=== PATIENT | female | born 1945 | race Caucasian/White ===

== ENCOUNTER → 2017-01-13 | Outpatient (CLI) | payer MEDICARE ==
[~2017-01-13] MED LIST: ACET650T10 PR; ASPI81CH CHEW; ASPI81TA82 PO; GLUCTAB6; POTA99TA12 PO; ROSU20 PO; ROSU40 PO; SERT-132 PO; TYLE325T PO; VITACAP7 PO; VITATAB11
--- NOTE | 2017-01-13 14:04 | RADRPT ---
EXAM DATE/TIME: 01/13/2017 13:53 [facility] COMPARISON: No previous studies available for comparison. INDICATIONS : Evaluate for pneumonia,pneumothorax or communicable disease. MEDICAL HISTORY : Cardiovascular disease. SURGICAL HISTORY : CABG. ENCOUNTER: Initial ACUITY: 1 day PAIN SCORE: 0/10 LOCATION: upper chest FINDINGS: PA and lateral views of the chest demonstrate the lungs to be symmetrically aerated without evidence of mass, infiltrate or effusion. The cardiomediastinal contours are unremarkable. There is evidence of previous cardiothoracic surgery. Osseous structures are intact. CONCLUSION: No acute disease. Paulo Blood MD on January 13, 2017 at 14:02 Board Certified Radiologist. This report was verified electronically.
[2017-01-13 14:12] LABS: AUTOMATED NEUTROPHIL # 4.5 TH/MM3 (1.8-7.7); BASOPHIL % 0.7 % (0.0-2.0); EOSINOPHIL # 0.1 TH/MM3 (0-0.4); HEMATOCRIT 40.4 % (35.0-46.0); HEMO FLAGS DIFF FINAL; LYMPH % 27.7 % (9.0-44.0); MEAN CELL VOLUME 98.8 FL (80.0-100.0); MEAN CORPUSCULAR HEMOGLOBIN 32.7 PG (27.0-34.0); MEAN CORPUSCULAR HGB CONC 33.1 % (32.0-36.0); MONO % 7.6 % (0.0-8.0); PLATELET COUNT 250 TH/MM3 (150-450); RED BLOOD COUNT 4.09 MIL/MM3 (4.00-5.30); RED CELL DISTRIBUTION WIDTH 14.2 % (11.6-17.2); WHITE BLOOD COUNT 7.2 TH/MM3 (4.0-11.0)
[2017-01-13 14:14] LABS: BLOOD, URINE NEG (NEG); COMMENT (UR) CULT NOT INDICATED; CULTURE IF INDICATED CULT NOT INDICATED; GLUCOSE,URINE NEG (NEG); KETONE, URINE NEG (NEG); NITRITE,URINE NEG (NEG); PH, URINE 5.5 (5.0-8.5); URINE COLOR YELLOW (YELLW/STRAW)
[2017-01-13 14:20] LABS: APTT (PATIENT) 25.7 SEC (24.3-30.1); INTERNATIONAL NORMALIZED RATIO 0.9 RATIO; PROTHROMBIN TIME - PATIENT 10.2 SEC (9.8-11.6)
[2017-01-13 14:43] LABS: ALT (GPT) 22 U/L (10-53); ANION GAP 8 MEQ/L (5-15); AST (GOT) 17 U/L (15-37); BICARBONATE 25.8 MEQ/L (21.0-32.0); BLOOD UREA NITROGEN 20 MG/DL (7-18); CHLORIDE 103 MEQ/L (98-107); GLOMERULAR FILTRATION RATE 96 ML/MIN (>89); GLUCOSE,FASTING 82 MG/DL (74-99); POTASSIUM 4.2 MEQ/L (3.5-5.1); SODIUM (NA) 137 MEQ/L (136-145)
[2017-01-13 14:46] LABS: ALKALINE PHOSPHATASE 57 U/L (45-117); TOTAL BILIRUBIN ADULT 0.8 MG/DL (0.2-1.0)
--- NOTE | 2017-01-16 18:11 | EKG ---
Date Performed: 01/13/2017 Time Performed: 13:19:10 PTAGE: 71 years EKG: Sinus rhythm RIGHT BUNDLE BRANCH BLOCK ABNORMAL ECG NO PREVIOUS TRACING DOCTOR: Reji Wells Interpretating Date/Time 01/16/2017 18:09:37
== END ==
LOC: CPRE 12:29
PROVIDERS: ATTEND Neurological Surgery
DX: Z01.810 Encounter for preprocedural cardiovascular examination (principal); Z01.812 Encounter for preprocedural laboratory examination; Z01.818 Encounter for other preprocedural examination; M51.36 Other intervertebral disc degeneration, lumbar region; M12.88 Other specific arthropathies, not elsewhere classified, other specified site; M43.16 Spondylolisthesis, lumbar region; R94.31 Abnormal electrocardiogram [ECG] [EKG]; Z79.01 Long term (current) use of anticoagulants
CPT/HCPCS: 36415; 71020; 80053; 81001; 85025; 85610; 85730; 93005

== ENCOUNTER 2017-01-24 05:41 | Inpatient (IN) | payer MEDICARE ==
--- NOTE | 2017-01-21 17:03 | MH ---
cc: ISABEL THORNTON M.D. DATE OF ADMISSION: 01/24/2017 ADMITTING DIAGNOSIS: Lumbar degenerative disk disease. HISTORY OF PRESENT ILLNESS: This is a 71-year-old female who is presented to our office on 08/07/2015 and also on 01/06/2017 for evaluation of hip, groin and right lateral leg pain. She has a history of bilateral hip pain for five years but really bad over the last two years. She was seeing Dr. Davila from orthopedics for her hip pain and x-rays were obtained and he felt that they looked okay and though that it was her lumbar spine that was the problem and he obtained an MRI of the lumbar spine. She was referred to our office for further evaluation. She states the pain in the low back whenever she is lifting something. She also has pain located in bilateral hips and in the groin, right more than left. The pain radiates into the lateral aspect of the right leg with associated paresthesias to the ankle, and at times the dorsal aspect of the left foot, although also relates osteoarthritic pain in the left foot. She has a difficult time getting up after she has been sitting for a while secondary to the groin pain. She has limited walking secondary to her pain and states that after her coronary artery bypass graft she was walking four miles a day and at her most recent appointment, she states that she cannot even walk a mile. She has been to her primary care physician who gave her a cortisone injection in the buttocks, which did not help. She has been to physical therapy, which did not help. She also states that she has had acupuncture, which helped her temporarily. She states at night when she goes to bed she has to lay on her back with a pillow under her legs and she cannot sleep on her sides any more secondary to her pain. She gets hot and cold sensations in her feet bilaterally. She has generalized weakness in the lower extremities but denies any falls. She denies any bowel or bladder incontinence. PAST MEDICAL HISTORY: Significant for: 1. Hyperlipidemia. 2. Coronary artery disease status post bypass graft in 2005. 3. Bunionectomy in 1989 and 1995. 4. Hysterectomy in 1975. MEDICATIONS: 1. Crestor 40 milligrams p.o. daily. 2. Sertraline 50 milligrams p.o. daily. 3. Aspirin 81 milligrams p.o. daily. 4. Glucosamine and chondroitin. 5. Potassium supplementation. 6. Vitamin B complex. ALLERGIES: SHE HAS NO KNOWN DRUG ALLERGIES. FAMILY HISTORY: Her mother is at 37 years old and had cancer. Her father is at 76 year old and he also had cancer. She has two sisters and a brother, one sister is 77 and another is 62 and another is 70, all are alive and well. SOCIAL HISTORY: She is . She is retired. She has three children. She quit smoking in 1989. She drinks zero to two drinks of alcohol daily. REVIEW OF SYSTEMS CONSTITUTIONAL: She denies any fever or chills. EARS, NOSE AND THROAT: No pharyngitis, exudates or bloody drainage from her nose. CARDIOVASCULAR: She denies any chest pain or palpitations. RESPIRATORY: No cough or shortness of breath. GENITOURINARY: No dysuria or hematuria. MUSCULOSKELETAL: Positive for low back pain and generalized weakness in the lower extremities. SKIN: No rashes or pruritus. NEUROLOGIC: No difficulty with speech or memory. GASTROINTESTINAL: No nausea or vomiting or abdominal pain. PSYCHIATRIC: No anxiety or depression symptoms. ENDOCRINE: No polyuria or polydipsia. HEMATOLOGIC: Positive bruising tendencies but no bleeding tendencies. PHYSICAL EXAMINATION HEAD: Normocephalic, atraumatic. NECK: Supple. No carotid bruits heard on auscultation. LUNGS: Clear to auscultation bilaterally. HEART: Regular rate and rhythm. Normal S1-S2. ABDOMEN: Soft, nontender. Positive bowel sounds. SKIN: Reveals no cyanosis or erythema. MUSCULOSKELETAL: She has 5/5 strength in the upper and lower extremities. She ambulates without any assistive device. NEUROLOGIC: She is awake, alert, oriented. Cranial nerves II-XII appear grossly intact. Speech is fluent. Comprehension is good. Sensation is hypersensitive in the right lateral foot otherwise intact in the extremities. Patellar reflexes are 2+. Achilles reflexes are absent bilaterally. DATA REVIEW: MRI of the lumbar spine from December 22, 2016 reveals moderate L4-L5 degenerative disk disease with a grade 1 spondylolisthesis and moderate to severe spinal stenosis with facet arthropathy. She also has mild L5-S1 disk degeneration. PLAN: We have discussed treatment options, which include an L4-L5 decompressive laminectomy versus a L4-L5 transforaminal decompression with interbody fusion to address the stenosis as well as the associated degenerative disk disease and spondylolisthesis. The procedure as well as the risks, benefits, alternatives and recovery time were explained in great detail with the patient. We have discussed the procedure in the office using spine models and all her questions were answered to her satisfaction. We have discussed the risks involved with surgery to include but not be limited to bleeding, infection, muscle weakness, voice hoarseness, difficulty swallowing, heart attack, stroke, blood clots, non-fusion, scar tissue formation among others. We have obtained cardiac clearance from Dr. Mitchell's office who placed her at an intermediate risk. She was instructed to hold her aspirin seven days prior to her surgical intervention. The patient states that she understands the procedure as well as the risks involved and she is requesting that proceed and she was therefore scheduled accordingly. Dictated by Dieter Hughes PA-C MD EZEKIEL Madrigal/YASMIN /4:31 PM /4:43 PM
[~2017-01-24] VITALS: Ht 162.6 cm; Wt 83.2 kg
[~2017-01-24 05:41] MED LIST changes: -ACET650T10 PR; -ASPI81TA82 PO; -GLUCTAB6; -POTA99TA12 PO; -ROSU40 PO; -SERT-132 PO; -VITATAB11
[2017-01-24] MEDS ORDERED: POVIDONE IODINE 5% (ANTISEPSIS KIT) 4 APPLICATIONS EACH NARE PRN ×2 (06:15)
[2017-01-24] MEDS ORDERED: SODIUM CHLOR 0.9% 1000 ML INJ 1,000 ML IV SCH ×2 (06:15)
[2017-01-24] MEDS ORDERED: LACTATED RINGER'S 1000 ML IV PRN ×2 (06:15)
[2017-01-24] MEDS ORDERED: SODIUM CHLORID 0.9% 500 ML IV PRN ×2 (06:15)
[2017-01-24] MEDS ORDERED: INSULIN HUMAN REGULAR 1,000 UNITS/10 ML VIAL SQ PRN ×2 (06:15)
[2017-01-24] MEDS ORDERED: CHLORHEXIDINE GLUCONATE 2 % 1 PACK (2 CLOTHS) TOPICAL PRN ×2 (06:15)
[2017-01-24] MEDS ORDERED: VANCOMYCIN HCL 1000 MG ON-CALL/NS 250 ML IV SCH ×4 (06:15)
[2017-01-24] MEDS ORDERED: METOPROLOL TARTRATE 25 MG TAB PO PRN ×2 (06:15)
[2017-01-24] MEDS ORDERED: HYDROmorphone HCL PF 2 MG/ML VIAL ONE ×2 (06:45)
[2017-01-24] MEDS ORDERED: DEXAMETHASONE SOD PHOS 4 MG/ML VIAL ONE ×2 (06:47)
[2017-01-24] MEDS ORDERED: ACETAMINOPHEN 1000 MG/100 ML 100 ML IV ONE ×2 (06:47)
[2017-01-24] MEDS ORDERED: FAMOTIDINE 20 MG/2 ML VIAL ONE ×2 (06:47)
[2017-01-24] MEDS ORDERED: VANCOMYCIN HCL 1000 MG VIAL ONE ×4 (06:52→10:56)
[2017-01-24] MEDS ORDERED: BUPIVACAINE/EPINEPHRINE 0.5% PF 10 ML VIAL ONE ×2 (06:52)
[2017-01-24] MEDS ORDERED: SERT25TA83 PO ×2 (06:52)
[2017-01-24] MEDS ORDERED: THROMBIN (TOPICAL) 5,000 UNIT VIAL ONE ×2 (06:52)
[2017-01-24] MEDS ORDERED: GELFOAM SIZE 100 ONE ×2 (06:53)
[2017-01-24] MEDS ORDERED: DO NOT ADM ANY ANTICOAGULANT DRUGS PRN ×2 (11:28)
--- NOTE | 2017-01-24 11:40 | RADRPT ---
EXAM DATE/TIME: 01/24/2017 08:32 [facility] COMPARISON: No previous studies available for comparison. INDICATIONS : Fusion L4,L5 with screws and joseph. MEDICAL HISTORY : Cardiovascular disease. SURGICAL HISTORY : CABG. ENCOUNTER: Initial ACUITY: 1 day PAIN SCORE: Non-responsive. LOCATION: Lumbar spine. FINDINGS: 2 views recorded digitally in the operating room using C-arm during placement of the lateral transped icular screws and an interspace device. CONCLUSION: Intraoperative images. Allen Mitchell MD on January 24, 2017 at 11:38 Board Certified Radiologist. This report was verified electronically.
[2017-01-24] MEDS: NS + KCL 20 MEQ INJ 1,000 ML IV SCH ×4 (11:41→21:41)
[2017-01-24] MEDS ORDERED: CYCLOBENZAPRINE HCL 10 MG TAB PO PRN ×2 (11:45)
[2017-01-24] MEDS ORDERED: MENTHOL LOZENGE BUCCAL PRN ×2 (11:45)
[2017-01-24] MEDS ORDERED: CALCIUM GLUCONATE INJ 1 GM in SODIUM CHLORIDE 0.9% INJ 100 ML IV PRN ×4 (11:45)
[2017-01-24] MEDS ORDERED: NALOXONE HCL 0.4 MG/ML AMP IV PUSH PRN ×2 (11:45)
[2017-01-24] MEDS ORDERED: diphenhydrAMINE HCL 50 MG/ML VIAL IV PUSH PRN ×2 (11:45)
[2017-01-24] MEDS ORDERED: POTASSIUM CHLOR 20 MEQ PREMIX 100 ML IV PRN ×2 (11:45)
[2017-01-24] MEDS ORDERED: MAGNESIUM SULFATE INJ 2 GM in SODIUM CHLORIDE 0.9% INJ 100 ML IV PRN ×4 (11:45)
[2017-01-24] MEDS ORDERED: ACETAMINOPHEN 325 MG TAB PO PRN ×2 (11:45)
[2017-01-24] MEDS ORDERED: cloNIDine HCL 0.1 MG TAB PO PRN ×2 (11:45)
[2017-01-24] MEDS ORDERED: ALUMINUM/MAGNESIUM/SIMETH 30 ML CUP PO PRN ×2 (11:45)
[2017-01-24] MEDS ORDERED: ACETAMINOPHEN/HYDROcodone 325 MG/10 MG TAB PO PRN ×2 (11:45)
[2017-01-24] MEDS ORDERED: ONDANSETRON HCL 4 MG/2 ML VIAL IV PUSH PRN ×2 (11:45)
[2017-01-24] MEDS ORDERED: PROMETHAZINE INJ 25 MG/ML VIAL IM PRN ×2 (11:45)
[2017-01-24] MEDS ORDERED: SODIUM CHLORIDE 0.9% FLUSH 10 ML FLUSH IV FLUSH PRN ×2 (11:45)
--- NOTE | 2017-01-24 11:46 | PD.OP ---
cc: Froylan Brewer MD Operative Report Date of Surgery: Jan 24, 2017 Preoperative Diagnosis: Intractable low back pain with neurogenic claudication and radiculopathy; L4-5 severe spinal stenosis from facet arthropathy and associated degenerative disc disease with a grade 1 spondylolisthesis Postoperative Diagnosis: Same Procedure: Lumbar L4-5 transforaminal interbody fusion; L4-5 decompressive laminectomy; L4- 5 pedicle screw fixation; L4-5 interbody cage placement; microsurgical technique Anesthesia: Gen. endotracheal by Miguel Caballero Surgeon: Jordin Grover M.D. Cardiac Exercise Physiologist(s): Filomena Dickinson Operation and Findings: Following initiation of general endotracheal anesthesia, the patient had a Frankel catheter placed along with sequential compression devices. A gram of vancomycin was administered intravenously and she was turned in a prone position on a Norm frame, on a Jonathan table, and all pressure points adequately padded. The lumbosacral region was then prepped with Chloraprep and sterilely draped with Ioban along the usual sterile draping. A right paraspinal skin incision was then made extending from the L4-L5 level after infiltrating the skin with 0.5% Marcaine with epinephrine solution extending down through the fascia. The muscle fibers were split using avascular fatty plane and detached from the underlying facets, transverse process and lateral portion of lamina on the right side and a self-retaining retractor used for exposure. Intraoperative fluoroscopy was also used for level of confirmation along with microscope magnification for further dissection. There was significant facet and ligamentum flavum hypertrophy noted at the L4-5 levels. There was a pars defect along with spondylolisthesis evident at this level. Right L4-5 facet was resected with a drill bit along with the lamina and there was severe foraminal and lateral recess stenosis from hypertrophied ligamentum flavum and facet which were decompressed bilaterally through the unilateral approach. There was disc degeneration along with disc protrusion also leading to the foraminal stenosis. Epidural hemostasis was achieved with bipolar cautery and Gelfoam with thrombin. Subsequently entered into the disc space at the L4-5 level with a #15 blade and courtney were used for discectomy. I then placed PEEK cage packed with local autograft bone and more local autograft bone was packed adjacent to the cage in interspace for added interbody fusion. With placement of the cage, I was able to distract the interspace and opened up the foramen further bilaterally. Subsequently in order to facilitate the fusion and provide stabilization, pedicle screw fixation was undertaken using Avalon spine screws on entry point at the right L4-5 levels at the junction of the transverse process and facet. Subsequently using AP and lateral fluoroscopy tap and screw placement. The screws were then connected with a joseph and locked in place with caps. The construct appeared very secure at this point. The area was then copiously irrigated with Vancomycin solution and powder. The retractors were removed and the bipolar cautery used for hemostasis. The muscle fascia was then approximated using 2-0 Vicryl interrupted stitches and then 3-0 Vicryl subcuticular stitches also placed in interrupted fashion. The final skin closure was completed with Mastisol and Steri-Strips. A sterile dressing was then applied. The patient then turned in supine position, extubated and taken to recovery room. There were no intraoperative complications. All sponge and needle counts were correct at the end of procedure. Estimated blood loss about 100 ml. Jordin Grover MD Jan 24, 2017 11:46
[2017-01-24] MEDS ORDERED: ERYTHROMYCIN 0.5% OPTH OINT 1 GM TUBO ONE ×2 (12:44)
[2017-01-24 13:06] LABS: HEMATOCRIT 38.1 % (35.0-46.0); HEMOGLOBIN 12.7 GM/DL (11.6-15.3); MEAN CELL VOLUME 98.9 FL (80.0-100.0); MEAN CORPUSCULAR HGB CONC 33.4 % (32.0-36.0); MEAN PLATELET VOLUME 9.3 FL (7.0-11.0); PLATELET COUNT 217 TH/MM3 (150-450); RED BLOOD COUNT 3.85 MIL/MM3 (4.00-5.30); RED CELL DISTRIBUTION WIDTH 14.5 % (11.6-17.2); WHITE BLOOD COUNT 6.6 TH/MM3 (4.0-11.0)
[2017-01-24 13:27] LABS: BICARBONATE 26.5 MEQ/L (21.0-32.0); CALCIUM 8.7 MG/DL (8.5-10.1); CREATININE 0.69 MG/DL (0.50-1.00)
[2017-01-24] MEDS: PCA - TOTAL MG MORPHINE DELIVERED PER SHIFT SCH ×2 (14:00)
[2017-01-24] MEDS ORDERED: PILL SPLITTER OTHER PRN ×2 (14:00)
[2017-01-24] MEDS: MORPHINE SULFATE 30 MG/30 ML PCA IV SCH ×2 (14:09)
[2017-01-24] MEDS ORDERED: ERYTHROMYCIN 0.5% OPTH OINT 3.5 GM TUBO LEFT EYE ONE ×2 (15:00)
[2017-01-24] MEDS ORDERED: TETRACAINE 0.5% OPTH SOLN 4 ML BTL LEFT EYE ONE ×2 (15:00)
[2017-01-24 15:52] VITALS: BP 114/63; PULSE 75; RESP 18; TEMP 98.4; O2SAT 98
[2017-01-24] MEDS ORDERED: ZOLPIDEM TARTRATE 5 MG TAB PO PRN ×2 (21:00)
[2017-01-24] MEDS: DOCUSATE SODIUM 100 MG CAP PO SCH ×2 (21:00)
[2017-01-24] MEDS: SODIUM CHLORIDE 0.9% FLUSH 10 ML FLUSH IV FLUSH SCH ×2 (21:00)
[2017-01-25] VITALS (7 sets, daily range): BP systolic 90–112; BP diastolic 50–58; PULSE 69–78; RESP 16–20; TEMP 97.8–98.6; O2SAT 96–100
[2017-01-25] MEDS: PCA - TOTAL MG MORPHINE DELIVERED PER SHIFT SCH ×8 (06:28→22:00)
[2017-01-25] MEDS: NS + KCL 20 MEQ INJ 1,000 ML IV SCH ×4 (07:41→17:41)
[2017-01-25] MEDS ORDERED: NON-FORMULARY DRUG (B-Complex Vitamins (B Complex) 1 CAP) PO SCH ×2 (09:00)
[2017-01-25] MEDS: POLYETHYLENE GLYCOL 17 GM PKG PO SCH ×2 (09:00)
[2017-01-25] MEDS: ATORVASTATIN 40 MG TAB PO SCH ×2 (09:00)
[2017-01-25] MEDS: SODIUM CHLORIDE 0.9% FLUSH 10 ML FLUSH IV FLUSH SCH ×4 (09:00→21:00)
--- NOTE | 2017-01-25 09:45 | HHI.NSPN ---
(Dieter Hughes) History Chief Complaint: Incisional discomfort. (Dieter Hughes) Interval History 01/25/17: Pt complains of incisional pain. No radiculopathy or paresthesias in LEs. She is on SPORTS EDITOR controlling pain when at rest, incisional pain with movement. (Dieter Hughes) Review of Systems General: Negative for: fever, chills, insomnia Respiratory: Negative for: shortness of breath, cough, sputum Cardiovascular: Negative for: chest pain Gastrointestinal: Negative for: nausea, vomitting, diarrhea, constipation ( Dieter Hughes) Exam Results Vital Signs Date Time Temp Pulse Resp B/P (MAP) Pulse Ox O2 Delivery O2 Flow Rate FiO2 01/25/17 04:00 98.2 74 20 101/51 (68) 97 01/24/17 14:00 Nasal Cannula 2 Intake and Output 01/25/17 01/25/17 01/26/17 08:00 16:00 00:00 Output Total 325 ml Balance -325 ml (Dieter Hughes) Physical Examination Resp: CTA bilaterally Heart: NSR no murmurs Abd: Soft positive bs Skin: Pt log rolled. Incision clean and dry. No signs of infection. Bandage left in place per orders. Muscle: Moves LEs with good strength. Neuro: Pt awake and alert. Follows commands well. Speech clear and appropriate. Sensation in LEs intact. (Dieter Hughes) Lab, Micro, Other Results Last Impressions Lumbar Spine X-Ray 01/24/17 0000 Signed Impressions: Service Date/Time: Tuesday, January 24, 2017 08:32 - CONCLUSION: Intraoperative images. Allen Mitchell MD Laboratory Tests Test 01/24/17 12:51 White Blood Count 6.6 TH/MM3 Red Blood Count 3.85 MIL/MM3 Hemoglobin 12.7 GM/DL Hematocrit 38.1 % Mean Corpuscular Volume 98.9 FL Mean Corpuscular Hemoglobin 33.0 PG Mean Corpuscular Hemoglobin Concent 33.4 % Red Cell Distribution Width 14.5 % Platelet Count 217 TH/MM3 Mean Platelet Volume 9.3 FL Blood Urea Nitrogen 12 MG/DL Creatinine 0.69 MG/DL Random Glucose 126 MG/DL Calcium Level 8.7 MG/DL Sodium Level 140 MEQ/L Potassium Level 3.9 MEQ/L Chloride Level 106 MEQ/L Carbon Dioxide Level 26.5 MEQ/L Anion Gap 8 MEQ/L Estimat Glomerular Filtration Rate 83 ML/MIN (Dieter Hughes) Medical Decision Making Impression and Plan A: 71 y/o FM s/p Lumbar L4-5 transforaminal interbody fusion; L4-5 decompressive laminectomy; L4-5 pedicle screw fixation; L4-5 interbody cage placement; microsurgical technique on 01/24/17. P: Continue to monitor Continue with current care Continue with rehab efforts. (Dieter Hughes) Attending Statement The exam, history, and the medical decision-making described in the above note were completed with the assistance of the mid-level provider. I reviewed and agree with the findings presented. I attest that I had a [id number] encounter with the patient on the same day, and personally performed and documented my assessment and findings in the medical record. Relates surgical incisional pain control with SPORTS EDITOR and ambulated with physical therapy short distance. Denies any lower extremity symptoms. Continue with pain management and physical therapy. (Jordin Grover MD) Dieter Hughes Jan 25, 2017 09:45 Jordin Grover MD Jan 25, 2017 18:24
--- NOTE | 2017-01-25 09:45 | HHI.NSPN ---
(Dieter Hughes) History Chief Complaint: Incisional discomfort. (Dieter Hughes) Interval History 01/25/17: Pt complains of incisional pain. No radiculopathy or paresthesias in LEs. She is on GROUT PUMP OPERATOR controlling pain when at rest, incisional pain with movement. (Dieter Hughes) Review of Systems General: Negative for: fever, chills, insomnia Respiratory: Negative for: shortness of breath, cough, sputum Cardiovascular: Negative for: chest pain Gastrointestinal: Negative for: nausea, vomitting, diarrhea, constipation ( Dieter Hughes) Exam Results Vital Signs Date Time Temp Pulse Resp B/P (MAP) Pulse Ox O2 Delivery O2 Flow Rate FiO2 01/25/17 04:00 98.2 74 20 101/51 (68) 97 01/24/17 14:00 Nasal Cannula 2 Intake and Output 01/25/17 01/25/17 01/26/17 08:00 16:00 00:00 Output Total 325 ml Balance -325 ml (Dieter Hughes) Physical Examination Resp: CTA bilaterally Heart: NSR no murmurs Abd: Soft positive bs Skin: Pt log rolled. Incision clean and dry. No signs of infection. Bandage left in place per orders. Muscle: Moves LEs with good strength. Neuro: Pt awake and alert. Follows commands well. Speech clear and appropriate. Sensation in LEs intact. (Dieter Hughes) Lab, Micro, Other Results Last Impressions Lumbar Spine X-Ray 01/24/17 0000 Signed Impressions: Service Date/Time: Tuesday, January 24, 2017 08:32 - CONCLUSION: Intraoperative images. Allen Mitchell MD Laboratory Tests Test 01/24/17 12:51 White Blood Count 6.6 TH/MM3 Red Blood Count 3.85 MIL/MM3 Hemoglobin 12.7 GM/DL Hematocrit 38.1 % Mean Corpuscular Volume 98.9 FL Mean Corpuscular Hemoglobin 33.0 PG Mean Corpuscular Hemoglobin Concent 33.4 % Red Cell Distribution Width 14.5 % Platelet Count 217 TH/MM3 Mean Platelet Volume 9.3 FL Blood Urea Nitrogen 12 MG/DL Creatinine 0.69 MG/DL Random Glucose 126 MG/DL Calcium Level 8.7 MG/DL Sodium Level 140 MEQ/L Potassium Level 3.9 MEQ/L Chloride Level 106 MEQ/L Carbon Dioxide Level 26.5 MEQ/L Anion Gap 8 MEQ/L Estimat Glomerular Filtration Rate 83 ML/MIN (Dieter Hughes) Medical Decision Making Impression and Plan A: 71 y/o FM s/p Lumbar L4-5 transforaminal interbody fusion; L4-5 decompressive laminectomy; L4-5 pedicle screw fixation; L4-5 interbody cage placement; microsurgical technique on 01/24/17. P: Continue to monitor Continue with current care Continue with rehab efforts. (Dieter Hughes) Attending Statement The exam, history, and the medical decision-making described in the above note were completed with the assistance of the mid-level provider. I reviewed and agree with the findings presented. I attest that I had a [id number] encounter with the patient on the same day, and personally performed and documented my assessment and findings in the medical record. Relates surgical incisional pain control with GROUT PUMP OPERATOR and ambulated with physical therapy short distance. Denies any lower extremity symptoms. Continue with pain management and physical therapy. (Jordin Grover MD) Dieter Hughes Jan 25, 2017 09:45 Jordin Grover MD Jan 25, 2017 18:24
--- NOTE | 2017-01-25 09:45 | HHI.NSPN ---
(Dieter Hughes) History Chief Complaint: Incisional discomfort. (Dieter Hughes) Interval History 01/25/17: Pt complains of incisional pain. No radiculopathy or paresthesias in LEs. She is on [employer] controlling pain when at rest, incisional pain with movement. (Dieter Hughes) Review of Systems General: Negative for: fever, chills, insomnia Respiratory: Negative for: shortness of breath, cough, sputum Cardiovascular: Negative for: chest pain Gastrointestinal: Negative for: nausea, vomitting, diarrhea, constipation ( Dieter Hughes) Exam Results Vital Signs Date Time Temp Pulse Resp B/P (MAP) Pulse Ox O2 Delivery O2 Flow Rate FiO2 01/25/17 04:00 98.2 74 20 101/51 (68) 97 01/24/17 14:00 Nasal Cannula 2 Intake and Output 01/25/17 01/25/17 01/26/17 08:00 16:00 00:00 Output Total 325 ml Balance -325 ml (Dieter Hughes) Physical Examination Resp: CTA bilaterally Heart: NSR no murmurs Abd: Soft positive bs Skin: Pt log rolled. Incision clean and dry. No signs of infection. Bandage left in place per orders. Muscle: Moves LEs with good strength. Neuro: Pt awake and alert. Follows commands well. Speech clear and appropriate. Sensation in LEs intact. (Dieter Hughes) Lab, Micro, Other Results Last Impressions Lumbar Spine X-Ray 01/24/17 0000 Signed Impressions: Service Date/Time: Tuesday, January 24, 2017 08:32 - CONCLUSION: Intraoperative images. Allen Mitchell MD Laboratory Tests Test 01/24/17 12:51 White Blood Count 6.6 TH/MM3 Red Blood Count 3.85 MIL/MM3 Hemoglobin 12.7 GM/DL Hematocrit 38.1 % Mean Corpuscular Volume 98.9 FL Mean Corpuscular Hemoglobin 33.0 PG Mean Corpuscular Hemoglobin Concent 33.4 % Red Cell Distribution Width 14.5 % Platelet Count 217 TH/MM3 Mean Platelet Volume 9.3 FL Blood Urea Nitrogen 12 MG/DL Creatinine 0.69 MG/DL Random Glucose 126 MG/DL Calcium Level 8.7 MG/DL Sodium Level 140 MEQ/L Potassium Level 3.9 MEQ/L Chloride Level 106 MEQ/L Carbon Dioxide Level 26.5 MEQ/L Anion Gap 8 MEQ/L Estimat Glomerular Filtration Rate 83 ML/MIN (Dieter Hughes) Medical Decision Making Impression and Plan A: 71 y/o FM s/p Lumbar L4-5 transforaminal interbody fusion; L4-5 decompressive laminectomy; L4-5 pedicle screw fixation; L4-5 interbody cage placement; microsurgical technique on 01/24/17. P: Continue to monitor Continue with current care Continue with rehab efforts. (Dieter Hughes) Attending Statement The exam, history, and the medical decision-making described in the above note were completed with the assistance of the mid-level provider. I reviewed and agree with the findings presented. I attest that I had a [id number] encounter with the patient on the same day, and personally performed and documented my assessment and findings in the medical record. Relates surgical incisional pain control with [employer] and ambulated with physical therapy short distance. Denies any lower extremity symptoms. Continue with pain management and physical therapy. (Jordin Grover MD) Dieter Hughes Jan 25, 2017 09:45 Jordin Grover MD Jan 25, 2017 18:24
[2017-01-25] MEDS: DOCUSATE SODIUM 100 MG CAP PO SCH ×4 (10:05→21:17)
[2017-01-25] MEDS: SERTRALINE HCL 50 MG TAB PO SCH ×2 (10:07)
[2017-01-25] MEDS: PANTOPRAZOLE SOD 40 MG DELAYED RELEASE TAB PO SCH ×2 (10:07)
[2017-01-25] MEDS: ASPIRIN 81 MG CHEW TAB CHEW SCH ×2 (10:08)
[2017-01-26] VITALS (7 sets, daily range): BP systolic 97–119; BP diastolic 48–58; PULSE 71–81; RESP 16–20; TEMP 98–98.8; O2SAT 92–98
[2017-01-26] MEDS: PCA - TOTAL MG MORPHINE DELIVERED PER SHIFT SCH ×2
[2017-01-26] MEDS: MORPHINE SULFATE 30 MG/30 ML PCA IV SCH ×2 (00:34)
[2017-01-26] MEDS: NS + KCL 20 MEQ INJ 1,000 ML IV SCH ×2 (05:09)
[2017-01-26] MEDS: SODIUM CHLORIDE 0.9% FLUSH 10 ML FLUSH IV FLUSH SCH ×4 (07:59→22:04)
[2017-01-26] MEDS: PANTOPRAZOLE SOD 40 MG DELAYED RELEASE TAB PO SCH ×2 (07:59)
[2017-01-26] MEDS: ASPIRIN 81 MG CHEW TAB CHEW SCH ×2 (07:59)
[2017-01-26] MEDS: SERTRALINE HCL 50 MG TAB PO SCH ×2 (07:59)
[2017-01-26] MEDS: DOCUSATE SODIUM 100 MG CAP PO SCH ×4 (07:59→22:01)
[2017-01-26] MEDS: POLYETHYLENE GLYCOL 17 GM PKG PO SCH ×2 (08:00)
[2017-01-26] MEDS: ATORVASTATIN 40 MG TAB PO SCH ×2 (08:04)
[2017-01-26] MEDS ORDERED: MORPHINE SULFATE 4 MG/ML INJ IV PUSH PRN ×2 (09:00)
--- NOTE | 2017-01-26 09:40 | HHI.NSPN ---
(Dieter Hughes) History Chief Complaint: Incisional discomfort. (Dieter Hughes) Interval History 01/25/17: Pt complains of incisional pain. No radiculopathy or paresthesias in LEs. She is on INSOLE CEMENTER controlling pain when at rest, incisional pain with movement. 01/26/17: Patient states incisional pain improved today. No radiculopathy or paresthesias in the lower extremities. INSOLE CEMENTER being discontinued this morning and her pain will be managed with oral pain medication. (Dieter Hughes) Review of Systems General: Negative for: fever, chills, insomnia Respiratory: Negative for: shortness of breath, cough, sputum Cardiovascular: Negative for: chest pain Gastrointestinal: Negative for: nausea, vomitting, diarrhea, constipation ( Dieter Hughes) Exam Results Vital Signs Date Time Temp Pulse Resp B/P (MAP) Pulse Ox O2 Delivery O2 Flow Rate FiO2 01/26/17 08:00 98.5 76 18 103/51 (68) 96 01/25/17 11:00 Nasal Cannula 3.00 Intake and Output 01/26/17 01/26/17 01/27/17 08:00 16:00 00:00 Intake Total 1120 ml Balance 1120 ml (Dieter Hughes) Physical Examination Resp: CTA bilaterally Heart: NSR no murmurs Abd: Soft positive bs Skin: No cyanosis or erythema. Muscle: Moves LEs with good strength. Neuro: Pt awake and alert. Follows commands well. Speech clear and appropriate. Sensation in LEs intact. (Dieter Hughes) Lab, Micro, Other Results Last Impressions Lumbar Spine X-Ray 01/24/17 0000 Signed Impressions: Service Date/Time: Tuesday, January 24, 2017 08:32 - CONCLUSION: Intraoperative images. Allen Mitchell MD 01/26/17 01/26/17 01/27/17 15:00 23:00 07:00 # Voids 1 (Dieter Hughes) Medical Decision Making Impression and Plan A: 71 y/o FM s/p Lumbar L4-5 transforaminal interbody fusion; L4-5 decompressive laminectomy; L4-5 pedicle screw fixation; L4-5 interbody cage placement; microsurgical technique on 01/24/17. P: Continue to monitor Continue with current care Continue with rehab efforts. D/C INSOLE CEMENTER, use oral pain medication. (Dieter Hughes) Attending Statement The exam, history, and the medical decision-making described in the above note were completed with the assistance of the mid-level provider. I reviewed and agree with the findings presented. I attest that I had a [id number] encounter with the patient on the same day, and personally performed and documented my assessment and findings in the medical record. (Jordin Grover MD) Dieter Hughes Jan 26, 2017 09:40 Jordin Grover MD Jan 26, 2017 15:24
--- NOTE | 2017-01-26 09:40 | HHI.NSPN ---
(Dieter Hughes) History Chief Complaint: Incisional discomfort. (Dieter Hughes) Interval History 01/25/17: Pt complains of incisional pain. No radiculopathy or paresthesias in LEs. She is on AGRICULTURAL AGENT controlling pain when at rest, incisional pain with movement. 01/26/17: Patient states incisional pain improved today. No radiculopathy or paresthesias in the lower extremities. AGRICULTURAL AGENT being discontinued this morning and her pain will be managed with oral pain medication. (Dieter Hughes) Review of Systems General: Negative for: fever, chills, insomnia Respiratory: Negative for: shortness of breath, cough, sputum Cardiovascular: Negative for: chest pain Gastrointestinal: Negative for: nausea, vomitting, diarrhea, constipation ( Dieter Hughes) Exam Results Vital Signs Date Time Temp Pulse Resp B/P (MAP) Pulse Ox O2 Delivery O2 Flow Rate FiO2 01/26/17 08:00 98.5 76 18 103/51 (68) 96 01/25/17 11:00 Nasal Cannula 3.00 Intake and Output 01/26/17 01/26/17 01/27/17 08:00 16:00 00:00 Intake Total 1120 ml Balance 1120 ml (Dieter Hughes) Physical Examination Resp: CTA bilaterally Heart: NSR no murmurs Abd: Soft positive bs Skin: No cyanosis or erythema. Muscle: Moves LEs with good strength. Neuro: Pt awake and alert. Follows commands well. Speech clear and appropriate. Sensation in LEs intact. (Dieter Hughes) Lab, Micro, Other Results Last Impressions Lumbar Spine X-Ray 01/24/17 0000 Signed Impressions: Service Date/Time: Tuesday, January 24, 2017 08:32 - CONCLUSION: Intraoperative images. Allen Mitchell MD 01/26/17 01/26/17 01/27/17 15:00 23:00 07:00 # Voids 1 (Dieter Hughes) Medical Decision Making Impression and Plan A: 71 y/o FM s/p Lumbar L4-5 transforaminal interbody fusion; L4-5 decompressive laminectomy; L4-5 pedicle screw fixation; L4-5 interbody cage placement; microsurgical technique on 01/24/17. P: Continue to monitor Continue with current care Continue with rehab efforts. D/C AGRICULTURAL AGENT, use oral pain medication. (Dieter Hughes) Attending Statement The exam, history, and the medical decision-making described in the above note were completed with the assistance of the mid-level provider. I reviewed and agree with the findings presented. I attest that I had a [id number] encounter with the patient on the same day, and personally performed and documented my assessment and findings in the medical record. (Jordin Grover MD) Dieter Hughes Jan 26, 2017 09:40 Jordin Grover MD Jan 26, 2017 15:24
--- NOTE | 2017-01-26 09:40 | HHI.NSPN ---
(Dieter Hughes) History Chief Complaint: Incisional discomfort. (Dieter Hughes) Interval History 01/25/17: Pt complains of incisional pain. No radiculopathy or paresthesias in LEs. She is on CORK SORTER controlling pain when at rest, incisional pain with movement. 01/26/17: Patient states incisional pain improved today. No radiculopathy or paresthesias in the lower extremities. CORK SORTER being discontinued this morning and her pain will be managed with oral pain medication. (Dieter Hughes) Review of Systems General: Negative for: fever, chills, insomnia Respiratory: Negative for: shortness of breath, cough, sputum Cardiovascular: Negative for: chest pain Gastrointestinal: Negative for: nausea, vomitting, diarrhea, constipation ( Dieter Hughes) Exam Results Vital Signs Date Time Temp Pulse Resp B/P (MAP) Pulse Ox O2 Delivery O2 Flow Rate FiO2 01/26/17 08:00 98.5 76 18 103/51 (68) 96 01/25/17 11:00 Nasal Cannula 3.00 Intake and Output 01/26/17 01/26/17 01/27/17 08:00 16:00 00:00 Intake Total 1120 ml Balance 1120 ml (Dieter Hughes) Physical Examination Resp: CTA bilaterally Heart: NSR no murmurs Abd: Soft positive bs Skin: No cyanosis or erythema. Muscle: Moves LEs with good strength. Neuro: Pt awake and alert. Follows commands well. Speech clear and appropriate. Sensation in LEs intact. (Dieter Hughes) Lab, Micro, Other Results Last Impressions Lumbar Spine X-Ray 01/24/17 0000 Signed Impressions: Service Date/Time: Tuesday, January 24, 2017 08:32 - CONCLUSION: Intraoperative images. Allen Mitchell MD 01/26/17 01/26/17 01/27/17 15:00 23:00 07:00 # Voids 1 (Dieter Hughes) Medical Decision Making Impression and Plan A: 71 y/o FM s/p Lumbar L4-5 transforaminal interbody fusion; L4-5 decompressive laminectomy; L4-5 pedicle screw fixation; L4-5 interbody cage placement; microsurgical technique on 01/24/17. P: Continue to monitor Continue with current care Continue with rehab efforts. D/C CORK SORTER, use oral pain medication. (Dieter Hughes) Attending Statement The exam, history, and the medical decision-making described in the above note were completed with the assistance of the mid-level provider. I reviewed and agree with the findings presented. I attest that I had a [id number] encounter with the patient on the same day, and personally performed and documented my assessment and findings in the medical record. (Jordin Grover MD) Dieter Hughes Jan 26, 2017 09:40 Jordin Grover MD Jan 26, 2017 15:24
[2017-01-26] MEDS: ACETAMINOPHEN/HYDROcodone 325 MG/10 MG TAB PO PRN ×4 (10:46→15:44)
[2017-01-26] MEDS: MAGNESIUM HYDROXIDE SUSP 30 ML CUP PO PRN ×2 (15:49)
[2017-01-27 00:39] VITALS: BP 108/61; PULSE 77; RESP 16; TEMP 98.3; O2SAT 95
[2017-01-27] MEDS: ACETAMINOPHEN/HYDROcodone 325 MG/10 MG TAB PO PRN ×8 (02:25→15:31)
[2017-01-27 04:51] VITALS: BP 113/55; PULSE 66; RESP 18; TEMP 98.2; O2SAT 95
[2017-01-27] MEDS: ATORVASTATIN 40 MG TAB PO SCH ×2 (07:21)
[2017-01-27] MEDS: PANTOPRAZOLE SOD 40 MG DELAYED RELEASE TAB PO SCH ×2 (07:27)
[2017-01-27] MEDS: SERTRALINE HCL 50 MG TAB PO SCH ×2 (07:27)
[2017-01-27] MEDS: ASPIRIN 81 MG CHEW TAB CHEW SCH ×2 (07:27)
[2017-01-27] MEDS: POLYETHYLENE GLYCOL 17 GM PKG PO SCH ×2 (07:27)
[2017-01-27] MEDS: DOCUSATE SODIUM 100 MG CAP PO SCH ×4 (07:27→20:34)
[2017-01-27] MEDS: SODIUM CHLORIDE 0.9% FLUSH 10 ML FLUSH IV FLUSH SCH ×4 (07:28→20:34)
[2017-01-27 08:28] VITALS: BP 129/59; PULSE 67; RESP 20; TEMP 97.7; O2SAT 96
--- NOTE | 2017-01-27 09:58 | HHI.NSPN ---
History Chief Complaint: Incisional discomfort. Interval History 01/25/17: Pt complains of incisional pain. No radiculopathy or paresthesias in LEs. She is on PRINCIPAL CLERK controlling pain when at rest, incisional pain with movement. 01/26/17: Patient states incisional pain improved today. No radiculopathy or paresthesias in the lower extremities. PRINCIPAL CLERK being discontinued this morning and her pain will be managed with oral pain medication. 01/27/17: Pt complains of incisional pain but improving. No radiculopathy or paresthesias in LEs. Pt states a few times yesterday her leg buckled on her but didn't fall with the walker. Pt off PRINCIPAL CLERK and controlling pain with oral pain medication. Review of Systems General: Negative for: fever, chills, insomnia Respiratory: Negative for: shortness of breath, cough, sputum Cardiovascular: Negative for: chest pain Gastrointestinal: Negative for: nausea, vomitting, diarrhea, constipation Exam Results Vital Signs Date Time Temp Pulse Resp B/P (MAP) Pulse Ox O2 Delivery O2 Flow Rate FiO2 01/27/17 08:28 97.7 67 20 129/59 (82) 96 01/25/17 11:00 Nasal Cannula 3.00 Physical Examination Resp: CTA bilaterally Heart: NSR no murmurs Abd: Soft positive bs Skin: No cyanosis or erythema. No signs of infection. New bandage applied. Muscle: Moves LEs with good strength. Neuro: Pt awake and alert. Follows commands well. Speech clear and appropriate. Sensation in LEs intact. Lab, Micro, Other Results Last Impressions Lumbar Spine X-Ray 01/24/17 0000 Signed Impressions: Service Date/Time: Tuesday, January 24, 2017 08:32 - CONCLUSION: Intraoperative images. Allen Mitchell MD Medical Decision Making Impression and Plan A: 71 y/o FM s/p Lumbar L4-5 transforaminal interbody fusion; L4-5 decompressive laminectomy; L4-5 pedicle screw fixation; L4-5 interbody cage placement; microsurgical technique on 01/24/17. P: Continue to monitor Continue with current care Continue with rehab efforts. Anticipate d/c tomorrow. Dieter Hughes Jan 27, 2017 9:58 am
--- NOTE | 2017-01-27 09:58 | HHI.NSPN ---
History Chief Complaint: Incisional discomfort. Interval History 01/25/17: Pt complains of incisional pain. No radiculopathy or paresthesias in LEs. She is on WHITTLING ROOM OPERATOR controlling pain when at rest, incisional pain with movement. 01/26/17: Patient states incisional pain improved today. No radiculopathy or paresthesias in the lower extremities. WHITTLING ROOM OPERATOR being discontinued this morning and her pain will be managed with oral pain medication. 01/27/17: Pt complains of incisional pain but improving. No radiculopathy or paresthesias in LEs. Pt states a few times yesterday her leg buckled on her but didn't fall with the walker. Pt off WHITTLING ROOM OPERATOR and controlling pain with oral pain medication. Review of Systems General: Negative for: fever, chills, insomnia Respiratory: Negative for: shortness of breath, cough, sputum Cardiovascular: Negative for: chest pain Gastrointestinal: Negative for: nausea, vomitting, diarrhea, constipation Exam Results Vital Signs Date Time Temp Pulse Resp B/P (MAP) Pulse Ox O2 Delivery O2 Flow Rate FiO2 01/27/17 08:28 97.7 67 20 129/59 (82) 96 01/25/17 11:00 Nasal Cannula 3.00 Physical Examination Resp: CTA bilaterally Heart: NSR no murmurs Abd: Soft positive bs Skin: No cyanosis or erythema. No signs of infection. New bandage applied. Muscle: Moves LEs with good strength. Neuro: Pt awake and alert. Follows commands well. Speech clear and appropriate. Sensation in LEs intact. Lab, Micro, Other Results Last Impressions Lumbar Spine X-Ray 01/24/17 0000 Signed Impressions: Service Date/Time: Tuesday, January 24, 2017 08:32 - CONCLUSION: Intraoperative images. Allen Mitchell MD Medical Decision Making Impression and Plan A: 71 y/o FM s/p Lumbar L4-5 transforaminal interbody fusion; L4-5 decompressive laminectomy; L4-5 pedicle screw fixation; L4-5 interbody cage placement; microsurgical technique on 01/24/17. P: Continue to monitor Continue with current care Continue with rehab efforts. Anticipate d/c tomorrow. Dieter Hughes Jan 27, 2017 9:58 am
--- NOTE | 2017-01-27 09:58 | HHI.NSPN ---
History Chief Complaint: Incisional discomfort. Interval History 01/25/17: Pt complains of incisional pain. No radiculopathy or paresthesias in LEs. She is on VENTURE CAPITALIST controlling pain when at rest, incisional pain with movement. 01/26/17: Patient states incisional pain improved today. No radiculopathy or paresthesias in the lower extremities. VENTURE CAPITALIST being discontinued this morning and her pain will be managed with oral pain medication. 01/27/17: Pt complains of incisional pain but improving. No radiculopathy or paresthesias in LEs. Pt states a few times yesterday her leg buckled on her but didn't fall with the walker. Pt off VENTURE CAPITALIST and controlling pain with oral pain medication. Review of Systems General: Negative for: fever, chills, insomnia Respiratory: Negative for: shortness of breath, cough, sputum Cardiovascular: Negative for: chest pain Gastrointestinal: Negative for: nausea, vomitting, diarrhea, constipation Exam Results Vital Signs Date Time Temp Pulse Resp B/P (MAP) Pulse Ox O2 Delivery O2 Flow Rate FiO2 01/27/17 08:28 97.7 67 20 129/59 (82) 96 01/25/17 11:00 Nasal Cannula 3.00 Physical Examination Resp: CTA bilaterally Heart: NSR no murmurs Abd: Soft positive bs Skin: No cyanosis or erythema. No signs of infection. New bandage applied. Muscle: Moves LEs with good strength. Neuro: Pt awake and alert. Follows commands well. Speech clear and appropriate. Sensation in LEs intact. Lab, Micro, Other Results Last Impressions Lumbar Spine X-Ray 01/24/17 0000 Signed Impressions: Service Date/Time: Tuesday, January 24, 2017 08:32 - CONCLUSION: Intraoperative images. Allen Mitchell MD Medical Decision Making Impression and Plan A: 71 y/o FM s/p Lumbar L4-5 transforaminal interbody fusion; L4-5 decompressive laminectomy; L4-5 pedicle screw fixation; L4-5 interbody cage placement; microsurgical technique on 01/24/17. P: Continue to monitor Continue with current care Continue with rehab efforts. Anticipate d/c tomorrow. Dieter Hughes Jan 27, 2017 9:58 am
[2017-01-27] MEDS: MAGNESIUM HYDROXIDE SUSP 30 ML CUP PO PRN ×2 (10:41)
[2017-01-27 12:00] VITALS: BP 126/60; PULSE 63; RESP 20; TEMP 97; O2SAT 94
[2017-01-27 16:16] VITALS: BP 120/59; PULSE 78; RESP 20; TEMP 97.7; O2SAT 95
[2017-01-27 19:00] VITALS: BP 143/58; PULSE 70; RESP 16; TEMP 98.3; O2SAT 96
[2017-01-27] MEDS ORDERED: MAGNESIUM CITRATE SOLN 300 ML BTL PO PRN ×2 (20:00)
[2017-01-27] MEDS ORDERED: SOD PHOSPHATE/SOD BIPHOSPHATE (ADULT) ENEMA 133ML RECTAL PRN ×2 (22:00)
[2017-01-28 00:13] VITALS: BP 135/63; PULSE 74; RESP 17; TEMP 98.5; O2SAT 95
[2017-01-28] MEDS: ACETAMINOPHEN/HYDROcodone 325 MG/10 MG TAB PO PRN ×6 (00:53→08:47)
[2017-01-28 05:20] VITALS: BP 132/61; PULSE 63; RESP 17; TEMP 97.7; O2SAT 94
[2017-01-28 08:00] VITALS: BP 127/58; PULSE 76; RESP 18; TEMP 98.1; O2SAT 96
[2017-01-28] MEDS: DOCUSATE SODIUM 100 MG CAP PO SCH ×2 (08:45)
[2017-01-28] MEDS: POLYETHYLENE GLYCOL 17 GM PKG PO SCH ×2 (08:45)
[2017-01-28] MEDS: ATORVASTATIN 40 MG TAB PO SCH ×2 (08:46)
[2017-01-28] MEDS: SERTRALINE HCL 50 MG TAB PO SCH ×2 (08:47)
[2017-01-28] MEDS: PANTOPRAZOLE SOD 40 MG DELAYED RELEASE TAB PO SCH ×2 (08:48)
[2017-01-28] MEDS: SODIUM CHLORIDE 0.9% FLUSH 10 ML FLUSH IV FLUSH SCH ×2 (08:48)
[2017-01-28] MEDS: ASPIRIN 81 MG CHEW TAB CHEW SCH ×2 (08:48)
== END 2017-01-28 10:16 | disposition home or self-care (01) | DRG 460 ==
LOC: HSDI 05:41 → N05B 15:00
PROVIDERS: ADMIT Neurological Surgery; ATTEND Neurological Surgery
PROC: 0ST20ZZ Resection of Lumbar Vertebral Disc, Open Approach (ICD-10-PCS; 2017-01-24)
PROC: 0SG00AJ Fusion of Lumbar Vertebral Joint with Interbody Fusion Device, Posterior Approach, Anterior Column, Open Approach (ICD-10-PCS; principal; 2017-01-24 08:30)
DX: M51.16 Intervertebral disc disorders with radiculopathy, lumbar region (principal); M48.062 Spinal stenosis, lumbar region with neurogenic claudication; M51.36 Other intervertebral disc degeneration, lumbar region; M43.16 Spondylolisthesis, lumbar region; E78.5 Hyperlipidemia, unspecified; I25.10 Atherosclerotic heart disease of native coronary artery without angina pectoris; Z95.1 Presence of aortocoronary bypass graft; Z79.82 Long term (current) use of aspirin; Z87.891 Personal history of nicotine dependence
CPT/HCPCS: 72100; 76000; 80048; 85027; 86850; 86900; 86901; 94150; J0131; J0690; J1100; J1170; J2270; J3370; J3480; J7120